=== PATIENT | female | born 1940 | race Caucasian/White ===

== ENCOUNTER 2017-06-07 10:10 | Inpatient (IN) | payer MEDICARE ==
[~2017-06-07] VITALS: Ht 154.9 cm; Wt 56.7 kg
[2017-06-07 10:14] VITALS: BP 166/94
[2017-06-07] MEDS ORDERED: ESSENTIAL DAIL1 EACH PO (10:17)
[2017-06-07 10:34] LABS: ABSOLUTE EOSINOPHILS 0.1 thou/uL (0.0-0.7); ABSOLUTE MONOCYTES 0.9 thou/uL (0.0-1.2); ABSOLUTE NEUTROPHILS 7.6 thou/uL (1.6-8.1); BASOPHILS 0.4 %; EOSINOPHILS 0.5 %; HEMATOCRIT 46.5 % (37.0-47.0); HEMOGLOBIN 15.4 gm/dL (12.0-15.0); LYMPHOCYTES 10.8 %; MCH 29.3 pg (26.0-34.0); MCV 88.8 fL (80.0-100.0); MONOCYTES 8.9 %; MPV 7.8 fl. (7.2-11.1); NUCLEATED RBCS 0 /100WBC; PLATELET COUNT* 397 thou/uL (150-400); POLYS 79.4 %; RBC 5.24 mil/uL (4.20-5.00); RDW-CV 12.3 % (10.5-14.5); WBC 9.6 thou/uL (4.0-11.0)
[2017-06-07 10:42] LABS: ANION GAP 6 mmol/L (7-16); BUN 9 mg/dL (7-18); CHLORIDE 94 mmol/L (98-107); CO2 30 mmol/L (21-32); CREATININE 0.7 mg/dL (0.6-1.3); GLUCOSE 116 mg/dL (70-99); POTASSIUM 4.3 mmol/L (3.5-5.1); SODIUM 130 mmol/L (136-145)
[2017-06-07 10:50] LABS: APTT 28.5 Seconds (25.0-31.3); INR 1.1; PROTIME 10.5 Seconds (9.20-11.50)
[2017-06-07 10:52] LABS: ALBUMIN 2.9 g/dL (3.4-5.0); ALKALINE PHOSPHATASE 165 U/L (46-116); LIPASE 124 U/L (73-393); MAGNESIUM 1.9 mg/dL (1.8-2.4); NT-PRO BRAIN NAT PEPTIDE 309 pg/mL (<300); SGOT 25 U/L (15-37); SGPT 19 U/L (30-65); TOTAL BILIRUBIN 0.3 mg/dL (<0.1-1.0); TOTAL PROTEIN 7.4 g/dL (6.4-8.2); TROPONIN-I LEVEL <0.06 ng/mL (<0.06)
--- NOTE | 2017-06-07 11:51 | NUR ---
ESTELA NOTIFED UPON PT RETURN FROM CT. PT CONNECTED TO O2 AND MONITOR
[2017-06-07 14:57] VITALS: BP 128/87
--- NOTE | 2017-06-07 15:01 | NUR ---
PT TAKEN TO ULTRASOUND, WILL BE TAKEN TO ROOM 204 AFTERWARDS
--- NOTE | 2017-06-07 15:25 | NUR ---
CM completed DPOA paperwork while Pt was in ED
--- NOTE | 2017-06-07 16:03 | EKG ---
[place] [address] ELECTROCARDIOGRAM REPORT Name: RAJIV CAMACHO Room: [place] [address] ADM IN .R.#: [id number] Admission: 06/07/17 Attend Phys: Kim Casey MD Discharge: Date of : 42 Report #: [id number] THIS REPORT FOR: //name// [facility] ED Test Date: 2017-06-07 Test Time: 10:42:40 Pat Name: RAJIV CAMACHO Department: Room: [facility] Gender: F Instrument Technician: COX BRANSON : 1940 Requested By: Stewart Palacio Order Number: [id number] MD: John Peterson Measurements Intervals [place] Rate: 101 P: 77 [place]: 186 QRS: 94 QRSD: 85 T: -1 QT: 333 QTc: 432 Interpretive Statements Sinus tachycardia Ventricular premature complex Right axis deviation Low voltage, extremity leads No previous ECG available for comparison Electronically Signed On 06-07-2017 16:03:20 CDT by John Peterson [email or web address] <ELECTRONICALLY SIGNED> By: John Peterson MD, [facility] 06/07/17 1603 1042 104 John Peterson MD, FAC /EPI
[2017-06-07 16:35] VITALS: BP 139/103
--- NOTE | 2017-06-07 16:36 | NUR ---
REPORT GIVEN FROM ER PATIENT TO RM AFTER US THORACENTESIS ORIENTED TO RM AND CALL LIGHT NO C/O MPAIN
[2017-06-07 16:41] LABS: BF RBC 16948 /mm3; TOTAL CELL COUNT 1768 /mm3
[2017-06-07 17:00] LABS: SOURCE THORACENTESIS
[2017-06-07 17:01] LABS: SOURCE THORACENTESIS
[2017-06-07 17:11] LABS: CLARITY CLOUDY; COLOR RED; SOURCE THORACENTESIS; TOTAL VOLUME 1560 ml
[2017-06-07 17:16] LABS: BF LYMPHOCYTES 88 %; BF MONOCYTES 5 %; BF OTHER CYTO TO FOLLOW; BF POLYS 7 %
[2017-06-07 17:57] VITALS: BP 121/79
--- NOTE | 2017-06-07 19:34 | NUR ---
PATIENT LAYING IN BED AND RESTING INSTRUCTED CHILD CAREGIVER PRIVATE HOME LIGHT USE INSTRUCTIONS FOLLOWED BED ALARM SET C/O DISCOMFORT AT R MID BACK AT THORACENTESIS SITE, BANDAID C/D/I REFUSED ANY PAIN MEDICATIONS WHEN OFFERED
[2017-06-07 20:00] VITALS: BP 108/64
[2017-06-08] VITALS: BP 124/73
--- NOTE | 2017-06-08 01:44 | NUR ---
PT DROWSEY AROUSABLE. UP WITH ASSIST OF ONE. CARDIZEM RUNNING AT 10MG/HR. TELEMETRY SHOWS AFIB RATE CONTROLLED 70S. O2 AT 2 LITERS NC. NPO AT MN FOR CARDIAC STRESS TEST. WILL CONTINUE TO MONITOR.
--- NOTE | 2017-06-08 01:55 | NUR ---
PT ALERT ORIENTED. FAMILY INTO SEE PT TONIGHT. BREATH SOUNDS DIM WITH CRACKLES IN RIGHT. RIGHT BACK DRSG D/I FROM WHERE THOROCENTESIS WAS DONE. O2 AT 1 LITER NC. SOB WITH ANY ACTIVITY TELEMETRY SHOWS SR. ATIVAN GIVEN HS. WILL CONTINUE TO MONITOR.
[2017-06-08 04:00] VITALS: BP 106/67
[2017-06-08 04:56] LABS: HEMATOCRIT 38.1 % (37.0-47.0); MCH 30.3 pg (26.0-34.0); MCHC 34.2 g/dL (28.0-37.0); MCV 88.4 fL (80.0-100.0); MPV 8.3 fl. (7.2-11.1); RBC 4.31 mil/uL (4.20-5.00); RDW-CV 12.3 % (10.5-14.5)
[2017-06-08 05:18] LABS: CALCIUM 8.6 mg/dL (8.5-10.1); CREATININE 0.5 mg/dL (0.6-1.3); MAGNESIUM 1.9 mg/dL (1.8-2.4); POTASSIUM 4.8 mmol/L (3.5-5.1)
--- NOTE | 2017-06-08 07:20 | NUR ---
CHANGE OF SHIFT, BEDSIDE REPORT GIVEN ASSUMED PATIENT CARE PATIENT SEEN AT BEDSIDE, LAYING IN BED NO REQUESTS AT THIS TIME
[2017-06-08 08:00] VITALS: BP 104/68
[2017-06-08 10:10] LABS: BODY FLUID AMYLASE 94 U/L (()); BODY FLUID LDH 415 IU/L (()); BODY FLUID PROTEIN 4.4 g/dL (())
--- NOTE | 2017-06-08 11:03 | NUR ---
CM SPOKE TO THE PATIENT TO DISCUSS HER HOME SITUATION, DISCHARGE PLANNING, AND TO INFORM OF THE ROLE OF CM. PATIENT ALERT, ORIENTED, AND INDEPENDENT WITH ADL'S PRIOR TO ADMISSION. 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 PATIENT RESIDES AT HOME ALONE. PATIENTS FAMILY AT THE BEDSIDE AND ARE SUPPOTIVE AND INVOLVED IN THE PATIENTS POC. PATIENT USES 0 DME. PATIENT HAS NO HX OF HH OR SNF. PATIENT PLANS TO RETURN HOME AT D/C. CM RECIEVED A REFERRAL FOR HOSPICE/PALLIATIVE CARE CONSULT. CM INFORMED PATIENT PF THIS AND OFFERED TO ASSIST BY PROVIDING LITERATURE AND ASSISTANCE WITHT THE REFERRAL PROCESS. PATIENT INFORMS THAT SHE IS NOT READY TO DO THAT UNTIL SHE SPEAKS WITH DR CHERRY SHE HAD QUESTIONS THAT SHE NEEDED ANSWERS TO FIRST. CM WILL REMAIN AVIALABLE TO ASSIST AND FOLLOW NEEDED.
[2017-06-08 11:46] VITALS: BP 112/70
[2017-06-08 15:48] VITALS: BP 104/61
[2017-06-08 18:06] LABS: BODY FLUID PH 7.5 (Not Estab.)
--- NOTE | 2017-06-08 19:35 | NUR ---
PATIENT LAYING IN BED AND RESTING CALL LIGHT IN REACH AND INSTRUCTION GIVEN AND FOLLOWED NO C/O PAIN
[2017-06-08 20:00] VITALS: BP 121/71
--- NOTE | 2017-06-08 20:00 | NUR ---
RECEIVED REPORT AND ASSUMED CARE OF PT, ASSESSMENT COMPLETED. PT PLEASANT AND TALKATIVE. FAMILY IN ROOM. ASKING IF SHE COULD WALK IN HALLS. GAIT STEADY AMBULATING AROUND 2ND FLOOR WITH FAMILY. TELEMETRY ON SHOWING SR. WILL CONT TO MONITOR AND ASSIST NEEDED.
[2017-06-09 00:09] VITALS: BP 124/68
[2017-06-09 04:47] VITALS: BP 126/72
[2017-06-09 05:11] LABS: HEMATOCRIT 37.8 % (37.0-47.0); HEMOGLOBIN 13.1 gm/dL (12.0-15.0); MCH 30.5 pg (26.0-34.0); MCHC 34.8 g/dL (28.0-37.0); MCV 87.6 fL (80.0-100.0); MPV 8.1 fl. (7.2-11.1); RBC 4.31 mil/uL (4.20-5.00); RDW-CV 12.3 % (10.5-14.5); WBC 7.3 thou/uL (4.0-11.0)
--- NOTE | 2017-06-09 05:27 | NUR ---
SLEPT WELL TONIGHT. INDEPENDENT BRP WITH STEADY GAIT. NO COMPLAINTS OF DISCOMFORT OR SOB. NO CHANGE IN ASSESSMENT. GOALS OF COMFORT AND SAFETY OBTAINED. HOURLY ROUNDING OBSERVED.
[2017-06-09 05:39] LABS: CALCIUM 8.3 mg/dL (8.5-10.1); CREATININE 0.5 mg/dL (0.6-1.3); MAGNESIUM 1.9 mg/dL (1.8-2.4); POTASSIUM 4.1 mmol/L (3.5-5.1)
[2017-06-09 08:00] VITALS: BP 121/76
--- NOTE | 2017-06-09 11:19 | NUR ---
VSS, ASSUMED CARE IN THE AM, ASSESSMENT PERFORMED AND CHARTED, FALL PRECAUTIONS IN PLACE AND CALL LIGHT IN REACH, PT IS A&O4 AND UP AD JAZZ DENIES ANY PAIN AND IS ON RA SA02 94%, PT GOAL IS TO D/C TO HOME ON DAY OF CARE. WILL FOLLOW WITH PLAN OF CARE. PT HR IS TRACING SR ON THE MONITOR.
[2017-06-09 12:26] VITALS: BP 107/67
[2017-06-09 16:23] VITALS: BP 111/66
--- NOTE | 2017-06-09 18:48 | NUR ---
VSS, PT IS PROGRESSING TOWARDS GOAL, PT IS UP AD JAZZ AND IS TRACING SR ON THE MONITOR AND DENIES ANY PAIN, SHE IS A&O4 AND ON RA AND SHE HAS MET GOAL, PT WANTS FAMILY TO BE CALLED BEFORE ANY PROCEDURE, AND HE WISH IS TO NOT HAVE ANY CONSULT FOR ONCOLOGY, HOURLTY ROUNDS COMPLETED AND WILL FOLLOW WITH PLAN OF CARE.
[2017-06-09 20:00] VITALS: BP 112/82
[2017-06-10] VITALS: BP 108/66
[2017-06-10 04:00] VITALS: BP 126/64
--- NOTE | 2017-06-10 06:11 | NUR ---
ASSUMED PT CARE AT 1930, PT IS A&OX4, TRACING NSR ON THE MONITOR, ON RA SATTING MID TO HIGH 90'S. PT IS UPA D JAZZ IN HER ROOM AND STABLE ON HER FEET. PT SLEPT ON AND OFF THOUGH OUT THE NIGHT. PT DENIES ANY PAIN OR NEEDS AT THIS TIME. BED IN LOW POSITION, CALL LIGHT IN REACH, BED ALARM ON, YELLOW ARM BAND AND SOCKS IN PLACE. HOURLY ROUNDING COMPLETED FOR PT SAFETY.
[2017-06-10 12:00] VITALS: BP 130/77
--- NOTE | 2017-06-10 18:10 | NUR ---
PATINET RESTING IN BED. UP AD JAZZ IN ROOM. PATIENT ANXIOUS TO DISCHARGE TO HOME. AWAITING CUTOLOGY RESULTS FROM THORACENTESIS. POSSIBLE INTERVENTION BASED UPON RESULTS AND PATIENT DESIRES. HOURLY ROUNDING COMPLETD FOR PATIENT SAFETY. PATINET PROGRESSING TOWARDS GOALS.
[2017-06-10 20:00] VITALS: BP 107/76
[2017-06-11] VITALS: BP 123/78
[2017-06-11 04:00] VITALS: BP 130/86
[2017-06-11 08:00] VITALS: BP 139/78
--- NOTE | 2017-06-11 10:17 | NUR ---
Pt to dc to home today. Discussed plan for hospice, Pt stated that she plans to f/u with hospice once she gets home. CM provided Pt with hospice order. Pt informed that she and family have met with [facility] hospice. Waiting for pulm to round, Pt anxious to dc home.
[2017-06-11] MEDS ORDERED: AUGMENTIN 875-1 EACH PO (11:16)
[2017-06-11] MEDS ORDERED: XANAX 0.25 MG0.25 MG PO (11:17)
[2017-06-11] MEDS ORDERED: HYDROCODONE-AP1 EAC6 PO (11:17)
[2017-06-11 11:19] VITALS: BP 139/78
--- NOTE | 2017-06-11 11:40 | CON ---
[address] [address] CONSULTATION Name: RAJIV CAMACHO Room: [address] IN .R.#: [id number] Admission: 06/07/17 Attend Phys: Kim Casey MD Discharge: Date of : 42 Report #: [id number] THIS REPORT FOR: //name// CC: Kim SUERO DATE OF SERVICE: 06/09/2017 REQUESTING PHYSICIAN: Dr. Proctor. INDICATION FOR CONSULTATION: Malignant pleural effusion with pneumothorax. HISTORY OF PRESENT ILLNESS: This is a 77-year-old female, past medical history includes a history of either ovarian or uterine cancer. The patient has had a hysterectomy as well as bilateral salpingo-oophorectomy in the past around 5 years ago. She does not have a history of respiratory or cardiac disease in the past and she is a lifetime nonsmoker. The patient says that now she has been progressively getting more weak over the last couple of months. She has had decrease in appetite as well, which is the reason that she eventually came to this hospital. She has also had increasing shortness of breath, primarily on exertion. She does report a dry cough as well. For these complaints, the patient was treated with an antibiotic as an outpatient. The patient describes this antibiotic as been amoxicillin. It is, however, not completely clear to me as whether the patient received plain amoxicillin or Augmentin. Regardless, there was no response. The patient; therefore, eventually came to this hospital and was admitted here 2 days ago. She did undergo a CTA chest the same day, which does show a large right-sided pleural effusion. There are masses as well as infiltrates noted as well. The patient subsequently underwent a thoracentesis. Subsequent chest x-rays do show a small pneumothorax on the right side, possibly with some loculations present as well. This pneumothorax does not appear to have significantly changed over the last 2 days. The patient essentially does not have any new complaints at rest at this time. She has had some improvement in her shortness of breath, which is primarily on minor exertion only. She essentially does not have any shortness of breath at rest at this time. She does still have a nonproductive cough. The patient was ordered Levaquin. The patient appears to have at times refused Levaquin and has not therefore been receiving it daily. The patient essentially does not have any other complaints except that she has some back pain, which she relates to an injury about a year ago. She does not have a fever. There are no upper respiratory complaints. There is no swelling of lower extremities or calf pain. PAST MEDICAL HISTORY: She has had a malignancy in the past. I do not have the details. She did undergo resection of her ovaries as well as uterus about [address] [place] [address] CONSULTATION Name: RAJIV CAMACHO Arelis Room: [address] IN [facility]#: [id number] Admission: 06/07/17 Attend Phys: Kim Casey MD Discharge: Date of : 42 Report #: [id number] years ago. For this reason, the patient may have refused radiation/chemotherapy at that time; however, I do not have records available. SOCIAL HISTORY: Lifetime nonsmoker. No known history of heavy alcohol use or illegal drug use. ALLERGIES: No known drug allergies. CURRENT MEDICATIONS: The list is in [facility] and this is reviewed. FAMILY HISTORY: There is no pertinent family history. PHYSICAL EXAMINATION: GENERAL: She is alert, awake and oriented. She is on room air and is oxygenating in the high 90s. VITAL SIGNS: Has a pulse of 87 and a blood pressure of 107/67. She is afebrile with a temperature of 36.8, respiratory rate is 18. HEENT: Head is normocephalic and atraumatic. Pupils are equal and reactive. There is no throat erythema. NECK: Does not show raised JVP, asymmetry, mass or lymph nodes. CHEST: Decreased expansion on the right side compared to the left on inspection and palpation. On auscultation, breath sounds are absent at the right lung base. I do not hear any added sounds. HEART: Regular. There is no murmur. ABDOMEN: Soft and nontender. EXTREMITIES: Lower extremities show no edema, no calf tenderness. SKIN: Dry and intact. NEUROLOGICAL: Moves all extremities bilaterally equally and spontaneously. There is no focal deficit identified. IMAGING: The patient had 3 chest x-rays. She has also had a CTA chest and thoracentesis. See above for further discussion. I reviewed her CT as well as images myself and read the reports as well. The pleural fluid analysis is reviewed except cytology is pending. LABORATORY DATA: The patient's CBC as well as chemistries are in [facility] and these are reviewed. Coagulation studies also in [facility] reviewed. ASSESSMENT AND PLAN: 1. Large right-sided pleural effusion. This is consistent with an underlying advanced malignant process. Obviously, we will need tissue diagnosis for confirmation. The cytology on the pleural fluid is pending at this time. I hope that this will provide us with enough answers. I understand that the patient may want to limit investigations. Should the cytology from pleural fluid not provide a sufficient diagnosis, then options will include either performing a repeat thoracentesis or performing a CT-guided lung biopsy, [address] [place] [address] CONSULTATION Name: DOUGRAJIV Arelis Room: [address] IN .R.#: [id number] Admission: 06/07/17 Attend Phys: Kim Casey MD Discharge: Date of : 42 Report #: [id number] performing an outpatient PET scan could be another consideration. I did discuss with the patient again about an Oncology consult. She says that she will think about it and will let us know if she wants to proceed with one. The patient says that she will be inclined to not consider any chemotherapy or radiation therapy. I did discuss with the patient regarding a PleurX catheter placement. The patient agreed and does want to proceed with a PleurX catheter placement if indicated. We will continue to follow and advise in this regard. 2. Pneumothorax. 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 I would recommend only observation at this time. If we do drain more fluid from the right lung later considering that the patient may have a trapped lung underneath, this may in fact look larger on subsequent imaging studies and this is noted. 2. Pulmonary infiltrates. It is likely that this is secondary to malignant process. Regardless, it will be possible for the patient to have pneumonia on top; therefore, I agree with Levaquin as currently ordered. 3. Fluid and electrolytes. She appears to be well hydrated. I discontinued her IV fluids. Note that the patient's current IV access has been lost, regardless. 4. Past medical history of gynecological malignancy as mentioned above. Thanks for this consultation. <ELECTRONICALLY SIGNED> By: Asim Campbell MD 06/11/17 1140 1512 [id number] Gold MD /nt
--- NOTE | 2017-06-11 12:17 | NUR ---
DISCHARGE INFORMATION DONE WITH PT PT PLANS TO GO TO HOSPICE UNDERSTANDS WHAT HOSPICE IS ABOUT [facility] H[facility] SERVICES SUPERVISOR DISCONTINUED DAUGHTER THERE FOR DISCHARGE PAPERWORK SCRIPTS GIVEN NO ISSUES AT THIS TIME
--- NOTE | 2017-06-12 16:14 | CNG ---
[address] [address] CYTO-NONGYN REPORT PROCEDURE Name: EMILIE CAMACHO Room: [address] IN [facility].#: [id number] Admission: 06/07/17 Date of : 42 Discharge: 06/11/17 Report #: [id number] Path Case #: [id number] CYTOPATHOLOGY REPORT COLLECTION DATE: 06/08/2017 RECEIVED DATE: 06/08/2017 SUBMITTING PHYS: Dr. Mika Mejia OTHER PHYS: Dr. Kim Campbell CLINICAL HISTORY: Lung cancer SPECIMEN(S) RECEIVED: A.Pleural fluid * * * * * * * * * * * * FINAL DIAGNOSIS: A. 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 - See comment. COMMENT: Review of the patient's clinical history including discussion with medical records in Dr. Horton' office reveals the patient to have stated a history of either ovarian or uterine cancer; however, no additional results or surgical pathology are available. The cell block and ThinPrep reveal many malignant cells predominantly present in small groups and occasionally singly with fairly minimal chronic inflammation. The malignant cells are characterized by ovoid nuclei, generally monotonous in appearance but with occasional larger irregular forms and having moderate to abundant lightly eosinophilic cytoplasm. Occasional prominent nucleoli are noted. A properly controlled mucicarmine stain is negative for evidence of mucin production. A panel of properly controlled immunohistochemical stains is performed with results as follows: PAX-8: Positive TTF-1: Negative WT-1: Negative CK7: Positive CK20: Negative CDX2: Negative CEAp: Negative Estrogen receptor: Negative Napsin: Negative GCDFP: Negative Preliminary results discussed with Dr. Campbell at approximately 15:15 on 06/11/2017. Reviewed with Dr. Carey who [place] [address] CYTO-NONGYN REPORT PROCEDURE Name: EMILIE CAMACHO Room: [address]#: [id number] Admission: 06/07/17 Date of : 42 Discharge: 06/11/17 Report #: [id number] Path Case #: [id number] (LESTER:pit; 06/12/2017) PATHOLOGIST: Wilson Cobos M.D. REPORT ELECTRONICALLY SIGNED BY: Wilson Cobos M.D. DATE/TIME: 06/12/2017 16:13 * * * * * * * * * * * * GROSS PATHOLOGY: A. Pleural fluid: The specimen is submitted fixed, labeled "Emilie Camacho". Received by the Cytology Department is 80 mL of cloudy reddish orange fluid. One ThinPrep slide and an alcohol fixed cell block were prepared. (mm 06.08.2017) DATA CONVERSION ANALYST(S): SANNA Caban(ASCP) INITIAL CPT CODE(S): A; 75135, 09594, 36535, 99836, 47596, 86428, 88194, 24093, 89709, 07408, 13106, 56826, 58608 Professional services performed [place] [address] Technical services performed by [facility] at [address] [place] [address]., [address], [place] [address]. Alvarez Horton [phone] (PHONE) [facility], [address] [place] [address] PHONE: [phone] DIRECTOR: Jeison Chan M.D. * * * END OF REPORT * * *
== END 2017-06-11 12:18 | disposition home or self-care (01) | DRG 177 ==
LOC: M.ERS 10:10 → M.2W 12:51 → M.TBA-ER 12:51 → M.2W 16:12
PROVIDERS: Emergency Medicine Emergency Medical Services; ADMIT Internal Medicine
PROC: 0W993ZZ Drainage of Right Pleural Cavity, Percutaneous Approach (ICD-10-PCS; principal; 2017-06-07)
DX: J15.6 Pneumonia due to other Gram-negative bacteria (principal); J96.01 Acute respiratory failure with hypoxia; J93.9 Pneumothorax, unspecified; C34.90 Malignant neoplasm of unspecified part of unspecified bronchus or lung; J90 Pleural effusion, not elsewhere classified; E87.1 Hypo-osmolality and hyponatremia; Z90.710 Acquired absence of both cervix and uterus; Z85.43 Personal history of malignant neoplasm of ovary; Z85.42 Personal history of malignant neoplasm of other parts of uterus

== ENCOUNTER 2017-06-21 11:16 | Inpatient (IN) | payer MEDICARE ==
[~2017-06-21] VITALS: Ht 154.9 cm; Wt 51.7 kg
[~2017-06-21 11:16] MED LIST: AUGMENTIN 875-1 EACH PO; ESSENTIAL DAIL1 EACH PO; HYDROCODONE-AP1 EAC6 PO; XANAX 0.25 MG0.25 MG PO
[2017-06-21 11:20] VITALS: BP 122/78
[2017-06-21 12:14] LABS: HEMATOCRIT 40.7 % (37.0-47.0); HEMOGLOBIN 13.5 gm/dL (12.0-15.0); MCH 29.4 pg (26.0-34.0); MCHC 33.2 g/dL (28.0-37.0); MCV 88.6 fL (80.0-100.0); MPV 7.6 fl. (7.2-11.1); NUCLEATED RBCS 0 /100WBC; PLATELET COUNT* 459 thou/uL (150-400); RBC 4.59 mil/uL (4.20-5.00); RDW-CV 12.7 % (10.5-14.5); WBC 8.9 thou/uL (4.0-11.0)
[2017-06-21 12:23] LABS: ANION GAP 6 mmol/L (7-16); APTT 28.5 Seconds (25.0-31.3); BUN 7 mg/dL (7-18); CALCIUM 8.7 mg/dL (8.5-10.1); CHLORIDE 93 mmol/L (98-107); CO2 30 mmol/L (21-32); CREATININE 0.5 mg/dL (0.6-1.3); GLUCOSE 135 mg/dL (70-99); INR 1.1; POTASSIUM 4.6 mmol/L (3.5-5.1); PROTIME 10.9 Seconds (9.20-11.50); SODIUM 129 mmol/L (136-145)
[2017-06-21 12:48] LABS: ABSOLUTE LYMPHOCYTES 1.6 thou/uL (0.8-5.3); ABSOLUTE MONOCYTES 0.4 thou/uL (0.0-1.2); ABSOLUTE NEUTROPHILS 6.9 thou/uL (1.6-8.1); ALBUMIN 2.3 g/dL (3.4-5.0); ALKALINE PHOSPHATASE 149 U/L (46-116); CK-MB MASS 0.9 ng/mL (<0.5-3.6); LIPASE 85 U/L (73-393); MAGNESIUM 1.9 mg/dL (1.8-2.4); NT-PRO BRAIN NAT PEPTIDE 333 pg/mL (<300); PLATELET ESTIMATE ADEQUATE; SGOT 23 U/L (15-37); SGPT 21 U/L (30-65); TOTAL BILIRUBIN 0.3 mg/dL (<0.1-1.0); TOTAL PROTEIN 6.6 g/dL (6.4-8.2); TROPONIN-I LEVEL <0.06 ng/mL (<0.06)
[2017-06-21 16:27] VITALS: BP 123/73
[2017-06-21 17:00] VITALS: BP 119/84
--- NOTE | 2017-06-21 17:00 | NUR ---
ER ADMIT VIA CART TO ROOM 210. ADMISSION ASSESSMENT COMPLETE, DEFER TO COMPUTER CHARTING. COMPUTER SYSTEMS INFORMATION DIRECTOR TRACKING ST WITH PAC'S, PVC'S. LUNGS DIMINISHED WITH WHEEZES, 02 ON 2L PER NC, SOA NOTED WITH ACTIVITY. PATIENT HAS 2 TO 3+ EDEMA IN LOWER EXTREMITIES - JAUNDICE IN COLOR. STANDBY ASSIST, WEAKNESS NOTED. OREINTED TO ROOM/CALL LIGHT, PLAN OF CARE AND SAFETY - CALLING FOR ASSIST WHEN GETTING OUT OF BED - FALL PERCUATIONS, VERBALIZED UNDERSTANDING. DAUGHTER AT BEDSIDE, WHOM IS SHAWN KEISHA - STATES PATIENT HAS BEEN AT HOME WITH HOSPICE, BUT DECIDED TO COME TO HOSPITAL FOR FUTHER TREATMENT. PATIENT TO RADIOLOGY VIA W/C FOR CT PER ORDERS. WILL CONTINUE TO MONITOR.
[2017-06-21] MEDS ORDERED: MSL20MG/ML PO (17:43)
[2017-06-21 20:08] VITALS: BP 129/90
[2017-06-21 23:33] VITALS: BP 143/86
[2017-06-22] VITALS (7 sets, daily range): BP systolic 88–123; BP diastolic 56–82
[2017-06-22 05:49] LABS: ABSOLUTE BASOPHILS 0.1 thou/uL (0.0-0.2); ABSOLUTE LYMPHOCYTES 0.6 thou/uL (0.8-5.3); ABSOLUTE MONOCYTES 0.8 thou/uL (0.0-1.2); ABSOLUTE NEUTROPHILS 8.2 thou/uL (1.6-8.1); BASOPHILS 1.4 %; EOSINOPHILS 0.2 %; HEMATOCRIT 40.9 % (37.0-47.0); HEMOGLOBIN 13.8 gm/dL (12.0-15.0); LYMPHOCYTES 6.4 %; MCH 29.9 pg (26.0-34.0); MCHC 33.8 g/dL (28.0-37.0); MCV 88.6 fL (80.0-100.0); MONOCYTES 8.5 %; NUCLEATED RBCS 0 /100WBC; PLATELET COUNT* 490 thou/uL (150-400); POLYS 83.5 %; RBC 4.62 mil/uL (4.20-5.00); RDW-CV 12.3 % (10.5-14.5); WBC 9.9 thou/uL (4.0-11.0)
[2017-06-22 06:02] LABS: ALBUMIN 2.3 g/dL (3.4-5.0); CREATININE 0.6 mg/dL (0.6-1.3); POTASSIUM 5.4 mmol/L (3.5-5.1); TOTAL BILIRUBIN 0.3 mg/dL (<0.1-1.0); TOTAL PROTEIN 6.6 g/dL (6.4-8.2)
--- NOTE | 2017-06-22 08:35 | NUR ---
PT IS ABLE TO COMMUNICATE HER NEEDS TO STAFF EFFECTIVELY. CURRENT PAIN MEDICATION REGIMEN HAS BEEN ADEQUATE FOR CONTROLLING HER PAIN UP TO THIS TIME. PT HAS BEEN NPO SINCE MIDNIGHT FOR A PROBABLE INSERTION OF A PLEUR-X VALVE LATER TODAY; PULMONOLOGY AND IR HAVE BEEN CONSULTED. PT'S HEART RHYTHM CHARGED TO ATRIAL FIB. WITH RVR DURING THE NIGHT; MD WAS CALLED, ORDERS RECEIVED AND IMPLEMENTED, AND TOLERATED WELL BY THE PT. PT HAS A HX OF METASTATIC LUNG CANCER AND WAS ON HOSPICE CARE AT HOME PRIOR TO ADMISSION TO [facility].
--- NOTE | 2017-06-22 09:48 | NUR ---
ASSUMED CARE OF PT AT 0800. PT CONTINUES TO BE ALERTAND IS TRACING SR ON THE MONITOR. IV CARDIZEM INFUSING AT 20MG/HR. PT LEFT THE FLOOR AT 0947 TO IR FOR PLUREX PLACEMENT. CONSENT SIGNED PRIOR TO DEPARTURE. PT TAKEN BY BED WITH O2 AT 2L.
--- NOTE | 2017-06-22 12:23 | NUR ---
CM SPOKE TO THE PATIENT AND HER DTR TO DISCUSS HOME SITUATION, DISCHARGE PLANNING, AND TO INFORM OF THE ROLE OF CM. PATIENT IS KNOWN TO THIS CM FROM PREVIOUS ADMISSION. PATIENT HAD [facility] PRIOR TO ADMISSION. PATIENT AND FAMILY SIGNED PAPERWORK TO [facility] PRIOR TO ADMISSION WITH THE INTENT TO RESUME HOSPICE AT D/C. PATIENTS DTR INFORMS CM THAT THE PLANS IS TO HAVE THE PATIENT RETURN TO HER HOME WITH HER AT D/C. CM WILL REMIAN AVIALABLE TO ASSIST AND FOLLOW NEEDED.
--- NOTE | 2017-06-22 14:26 | EKG ---
[place] [address] ELECTROCARDIOGRAM REPORT Name: DOUGRAJIV Room: [address] ADM IN .R.#: [id number] Admission: 06/21/17 Attend Phys: Bárbara Camargo Discharge: Date of : 42 Report #: [id number] THIS REPORT FOR: //name// [facility] ED Test Date: 2017-06-21 Test Time: 11:23:10 Pat Name: RAJIV CAMACHO Department: Room: [facility] Gender: F Guide Dog Instructor: DORCAS : 1940 Requested By: Dominic Bermudez Order Number: [id number] MD: Cm De Leon Measurements Intervals [place] Rate: 101 P: 89 PA: 165 QRS: 125 QRSD: 84 T: -17 QT: 309 QTc: 401 Interpretive Statements Sinus tachycardia Right axis deviation Borderline low voltage, extremity leads Abnormal R-wave progression, late transition Compared to ECG 06/07/2017 10:42:40 Ventricular premature complex(es) no longer present Electronically Signed On 06-22-2017 14:26:21 CDT by Cm De Leon [email or web address] <ELECTRONICALLY SIGNED> By: Cm De Leon MD, FACC 06/22/17 1426 1123 1123 Cm De Leon MD, FAC /EPI
--- NOTE | 2017-06-22 14:28 | EKG ---
[place] [address] ELECTROCARDIOGRAM REPORT Name: RAJIV CAMACHO Room: [address] ADM IN M.R.#: [id number] Admission: 06/21/17 Attend Phys: Bárbara Camargo Discharge: Date of : 42 Report #: [id number] THIS REPORT FOR: //name// [facility] Test Date: 2017-06-22 Test Time: 01:16:44 Pat Name: RAJIV CAMACHO Department: Room: [address] Gender: F Enamel Drier: CKARONZ : 1940 Requested By: Sandor Victor Order Number: [id number] Trey MD: Cm De Leon Measurements Intervals [place] Rate: 140 P: FL: QRS: 114 QRSD: 79 T: -31 QT: 261 QTc: 398 Interpretive Statements Atrial fibrillation with rapid V-rate Ventricular premature complex Left posterior fascicular block Low voltage, extremity leads Abnormal R-wave progression, late transition Borderline T abnormalities, inferior leads Compared to ECG 06/07/2017 10:42:40 Left posterior fascicular block now present T-wave abnormality now present Sinus tachycardia no longer present Right-axis deviation no longer present Electronically Signed On 06-22-2017 14:28:03 CDT by Cm De Leon [email or web address] <ELECTRONICALLY SIGNED> By: Cm De Leon MD, [facility] 06/22/17 1428 0116 0116 Cm De Leon MD, [facility] /EPI
[2017-06-22] MEDS ORDERED: REQUIP 0.25 M0.25 MG PO (14:40)
[2017-06-22] MEDS ORDERED: LORAZEPAM 22 MG/1 ML PO (14:43)
[2017-06-22] MEDS ORDERED: CARDIZEM30 MG PO (14:44)
--- NOTE | 2017-06-22 15:44 | NUR ---
CM SPOKE TO THE PATIENT AND HER DTR TO DISCUSS DISCHARGE PLANNING NEEDS AND TRANSPORTATION AT D/C. PATIENT'S DTR REQUEST AMBULANCE TRANSPORT HOME. CM SPOKE TO [facility] TO INFORM OF THE NEED TO TRANSPORT PATIENT HOME AT 1800 AND FAXED PATIENT TRANSFER FORM. CM SPOKE TO [facility] TO INFORM OF THE PATIENT'S D/C AND FAXED PATIENT'S D/C ORDERS. CM INFORMED THE RN OF THE TIME OF TRANSPORT. RN IN AGREEM[place]. CM WILL REMAIN AVAILABLE TO ASSIST AND FOLLOW NEEDED.
--- NOTE | 2017-06-22 18:56 | NUR ---
PT DISCHARGED HOME WITH HOSPICE SERVICES VIA AMBULANCE. PT AND FAMILY VERBALIZED UNDERSTANDING OF DC INSTRUCTIONS. ALL PERSONAL ITEMS AND ALL PRESCRIPTIONS TAKEN AT TIME OF DISCHARGE. PT VSS ON 2L VIA NC, NO C/O DISTRESS OR UNCONTROLLED PAIN. REPORT GIVEN TO YESSENIA ANGUIANO. HOSPICE TO MEET PT AT HOME.
--- NOTE | 2017-06-25 09:52 | CON ---
[address] [address] CONSULTATION Name: RAJIV CAMACHO Room: [address] IN M.R.#: [id number] Admission: 06/21/17 Attend Phys: Bárbara Camargo Discharge: 06/22/17 Date of : 42 Report #: [id number] THIS REPORT FOR: //name// CC: RICHARD Victor DO DATE OF SERVICE: 06/22/2017 LOCATION: Room 210. INDICATION FOR CONSULTATION: Rapidly recurrent right pleural effusion, malignant. 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 The patient was hospitalized here on 06/08/2017 through 06/14/2017. She was tapped initially on 06/10/2017 with a fair amount of fluid obtained. She was then discharged home on 06/14/2017. Was going to follow up with her primary care physician concerning hospice care. Over the past 2 days, the patient had increasing dyspnea on exertion, PND, orthopnea and felt like her chest was filling up. Chest x-ray and CT of the chest showed opacification of her right hemithorax with very large pleural effusion with contralateral shift of the mediastinum to the left. She has had a history of ovarian CA and I believe also lung CA. She has had metastatic disease to her thorax and also to her bones. She is getting ready to go down for a right PleurX catheter. 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 PAST SURGICAL HISTORY: Includes total abdominal hysterectomy. ALLERGIES: She has no known medical allergies. MEDICATIONS: Include morphine for pain, promethazine for nausea, alprazolam orally for anxiety, had DuoNeb treatments and potassium and magnesium supplements. She has recently been off Augmentin. FAMILY HISTORY: Negative for premature cardiopulmonary disease. Negative for ovarian cancer. SOCIAL HISTORY: She is a nonsmoker, nondrinker. REVIEW OF SYSTEMS: A 14-point review of systems reviewed and negative except for pertinent positives [place] [address] CONSULTATION Name: RAJIV CAMACHO Arelis Room: [address]#: [id number] Admission: 06/21/17 Attend Phys: Bárbara Camargo Discharge: 06/22/17 Date of : 42 Report #: [id number] PHYSICAL EXAMINATION: GENERAL: A 77-year-old female, mildly short of breath. VITAL SIGNS: Blood pressure is 117/74, heart rate is 104, respirations are 20. She is on 2 liters with a saturation 95% and temperature is 36.4 degrees. GENERAL: She is 5 feet 3 inches tall, weight 52 kilograms or 114 pounds, BMI is 21. HEENT: Nares and pharynx are clear. NECK: Supple without nodes. CHEST: Markedly dull in the right chest with contralateral shift of mediastinum. Left lungs show a few rhonchi, but no wheeze. CARDIOVASCULAR: Regular rate and rhythm without murmur, gallop or rub. Heart rate is 104. ABDOMEN: Soft, without hepatosplenomegaly, may be a mild fluid wave noted in the abdomen. EXTREMITIES: No calf tenderness. No cyanosis, clubbing or edema. NEUROLOGIC: Intact. She is moving all fours. SKIN: Dry and intact. LABORATORY DATA: Hemoglobin is 14, white count is 9900, platelets are . Normal differential. Sodium is 130, potassium is 5.4, chloride is 95, bicarbonate is 33. BUN was 6 with a creatinine of 0.6, glucose is 124, alkaline phosphatase is 154 which is elevated, ALT is low at 17. NT-ProBNP is 333. Albumin is 2.3. Prealbumin is 12.6, which is low. Coags were normal. Chest x-ray and CT shows large right pleural effusion with compressive atelectasis of right lung and contralateral shift. IMPRESSION: Rapidly recurring malignant right pleural effusion, probably related to ovarian, uterine carcinoma. PLAN: The patient is a DNR/DNI. I concur with that. Either a right-sided thoracentesis or right PleurX catheter might be indicated. She may live another 2-4 weeks. The fluid is going to reoccur about every week and so having a PleurX cath and having a drain 3 times weekly by home health nursing may be the most advantageous. I do agree with hospice and palliative care. Prognosis is quite guarded. We continue supplemental O2 at 2 liters and other comfort measures. Thanks again for allowing us to participate in this lady's care. <ELECTRONICALLY SIGNED> By: Héctor Moe MD 06/25/17 [id number] White MD /nt
== END 2017-06-22 18:47 | disposition hospice, home (50) | DRG 177 ==
LOC: M.ERS 11:16 → M.2W 13:03 → M.TBA-ER 13:03 → M.2W 16:43
PROVIDERS: Family Medicine; ADMIT Internal Medicine
PROC: 0W9930Z Drainage of Right Pleural Cavity with Drainage Device, Percutaneous Approach (ICD-10-PCS; principal; 2017-06-22)
DX: J15.6 Pneumonia due to other Gram-negative bacteria (principal); R65.11 Systemic inflammatory response syndrome (SIRS) of non-infectious origin with acute organ dysfunction; E43 Unspecified severe protein-calorie malnutrition; J96.21 Acute and chronic respiratory failure with hypoxia; E87.1 Hypo-osmolality and hyponatremia; J91.0 Malignant pleural effusion; Z51.5 Encounter for palliative care; E87.8 Other disorders of electrolyte and fluid balance, not elsewhere classified; D47.3 Essential (hemorrhagic) thrombocythemia; G89.29 Other chronic pain; F41.9 Anxiety disorder, unspecified; Z85.42 Personal history of malignant neoplasm of other parts of uterus; Z85.43 Personal history of malignant neoplasm of ovary; Z90.710 Acquired absence of both cervix and uterus; Z85.118 Personal history of other malignant neoplasm of bronchus and lung